=== PATIENT | female | born 1985 | race Caucasian/White ===

== ENCOUNTER 2020-07-16 17:30 | Inpatient (IN) | payer OTHER ==
[~2020-07-16] VITALS: Ht 162.6 cm; Wt 1.8 kg
[2020-07-16] MEDS ORDERED: IRON325 MG PO (22:35)
[2020-07-16] MEDS ORDERED: SYNTHROID137 MCG PO (22:35)
[2020-07-16] MEDS ORDERED: PRENATAL TABLE1 EAC1 PO (22:35)
[2020-07-16] MEDS ORDERED: CHILDREN'S ASPI81 MG PO (22:36)
[2020-07-17] MEDS ORDERED: FUSION PLUS CA1 EACH (14:40)
== END 2020-07-18 18:46 | disposition home or self-care (01) | DRG 807 ==
LOC: OBS/DEL 17:30 → OB/GYN 19:48 → LDR 19:48 → OB/GYN 21:41
PROVIDERS: ADMIT Specialist; ATTEND Specialist
PROC: 10E0XZZ Delivery of Products of Conception, External Approach (ICD-10-PCS; principal; 2020-07-16)
PROC: 4A1HXFZ Monitoring of Products of Conception, Cardiac Rhythm, External Approach (ICD-10-PCS; 2020-07-16)
DX: O60.14X0 Preterm labor third trimester with preterm delivery third trimester, not applicable or unspecified (principal); O24.429 Gestational diabetes mellitus in childbirth, unspecified control; Z37.0 Single live birth; Z3A.34 34 weeks gestation of pregnancy; Z20.822 Contact with and (suspected) exposure to COVID-19